=== PATIENT | male | born 1960 | race Asian ===

== ENCOUNTER → 2017-01-01 | Outpatient (CLI) | payer OTHER ==
[~2017-01-01] MED LIST: ALLOPURINOL100 MG PO; ATA25 PO; AUG500 PO; BACTRIM DS1 TAB PO; BG MC; COL100 PO; ECO81 PO; METFORMIN ER500 M1 PO; METOPROLOL SUCC50 M2 PO; SIMVASTATIN20 M1 PO; TRICOR48 M1 PO; VAN1PM IV; XALATAN2.5 ML OU; ZESTRIL20 MG PO
== END | disposition home or self-care (01) ==
LOC: LB 09:14
DX: I25.10 Atherosclerotic heart disease of native coronary artery without angina pectoris (principal)
CPT/HCPCS: 84153

== ENCOUNTER 2017-02-23 06:17 | Emergency (ER) | payer OTHER ==
[2017-02-23 07:27] VITALS: BP 176/105
== END 2017-02-23 07:27 | disposition home or self-care (01) ==
LOC: ED 06:17
DX: M79.604 Pain in right leg (principal); E11.9 Type 2 diabetes mellitus without complications; I10 Essential (primary) hypertension; M10.9 Gout, unspecified
CPT/HCPCS: Q0092

== ENCOUNTER → 2017-03-13 | Outpatient (CLI) | payer OTHER | END | disposition home or self-care (01) | LOC: LB 13:01 | DX: M10.9 Gout, unspecified (principal) ==

== ENCOUNTER → 2017-03-27 | Outpatient (CLI) | payer OTHER | END | disposition home or self-care (01) | LOC: RD 13:45 | DX: S82.90XA Unspecified fracture of unspecified lower leg, initial encounter for closed fracture (principal); X58.XXXA Exposure to other specified factors, initial encounter; Y92.9 Unspecified place or not applicable ==

== ENCOUNTER → 2017-07-13 | Outpatient (CLI) | payer OTHER | END | disposition home or self-care (01) | LOC: LB 07:37 | DX: R97.20 Elevated prostate specific antigen [PSA] (principal) | CPT/HCPCS: 84153 ==

== ENCOUNTER → 2017-10-01 | Outpatient (CLI) | payer OTHER ==
[2017-10-01 08:06] LABS: BASOPHIL % 0.8 % (0-2); PLATELET COUNT 229 x10^3mcL (130-400); RED CELL DISTRIBUTION WIDTH 12.9 % (11.5-14.5)
[2017-10-01 08:59] LABS: ALBUMIN 3.9 g/dL (3.4-5.0); ALKALINE PHOSPHATASE 77 U/L (46-116); ALT/SGPT 43 U/L (16-63); AST/SGOT 26 U/L (15-37); BILIRUBIN DIRECT 0.14 mg/dL (0.0-0.2); BILIRUBIN TOTAL 0.65 mg/dL (0.20-1.00); CALCIUM 8.9 mg/dL (8.5-10.1); CHLORIDE SERUM 104 mmol/L (98-107); CREATININE SERUM 1.1 mg/dL (0.7-1.3); GFR1 > 60 mL/min; GLUCOSE SERUM 141 mg/dL (74-106); HDL CHOLESTEROL 42 mg/dL (40-60); SODIUM SERUM 140 mmol/L (136-145); TOTAL PROTEIN, SERUM 7.5 g/dL (6.4-8.2)
[2017-10-01 09:02] LABS: CHOLESTEROL 206 mg/dL (<200); CHOLESTEROL/HDL RATIO 4.9; TRIGLYCERIDES 310 mg/dL (<150)
[2017-10-02 13:06] LABS: microalbumin:creatinine ratio 84.2 (0.0-30.0)
== END | disposition home or self-care (01) ==
LOC: LB 07:27
PROVIDERS: Internal Medicine
DX: E11.9 Type 2 diabetes mellitus without complications (principal); I10 Essential (primary) hypertension

== ENCOUNTER 2017-10-21 06:13 | Day surgery (SDC) | payer OTHER ==
[~2017-10-21] VITALS: Ht 175.3 cm; Wt 106.6 kg
[2017-10-21 06:26] VITALS: BP 171/97
[2017-10-21 09:53] VITALS: BP 148/89
== END 2017-10-21 09:45 | disposition home or self-care (01) ==
LOC: DS 06:13 → OR 07:30 → GI 07:30 → DS 09:45
PROVIDERS: Internal Medicine
PROC: 0DBP8ZZ Excision of Rectum, Via Natural or Artificial Opening Endoscopic (ICD-10-PCS; principal; 2017-10-21 07:30)
DX: Z12.11 Encounter for screening for malignant neoplasm of colon (principal); K62.1 Rectal polyp; E11.9 Type 2 diabetes mellitus without complications; H40.9 Unspecified glaucoma; I10 Essential (primary) hypertension; M10.9 Gout, unspecified; E78.00 Pure hypercholesterolemia, unspecified; Z86.010 Personal history of colon polyps; Z68.34 Body mass index [BMI] 34.0-34.9, adult
CPT/HCPCS: 45378; J0690; J1200; J1610; J2001; J2250; J2310; J3010; J3490

== ENCOUNTER → 2018-02-02 | Outpatient (CLI) | payer OTHER ==
[2018-02-02 08:39] LABS: ALBUMIN 3.8 g/dL (3.4-5.0); ALKALINE PHOSPHATASE 76 U/L (46-116); ALT/SGPT 44 U/L (16-63); AST/SGOT 23 U/L (15-37); BILIRUBIN TOTAL 0.9 mg/dL (0.20-1.00); CALCIUM 9.4 mg/dL (8.5-10.1); CARBON DIOXIDE 27.8 mmol/L (21-32); CHLORIDE SERUM 102 mmol/L (98-107); GFR1 > 60 mL/min; GLUCOSE SERUM 194 mg/dL (74-106); POTASSIUM SERUM 4.7 mmol/L (3.5-5.1); SODIUM SERUM 137 mmol/L (136-145); TOTAL PROTEIN, SERUM 7.8 g/dL (6.4-8.2)
== END | disposition home or self-care (01) ==
LOC: LB 07:23
PROVIDERS: Internal Medicine
DX: E11.9 Type 2 diabetes mellitus without complications (principal)
CPT/HCPCS: 84153

== ENCOUNTER → 2018-06-07 | Outpatient (CLI) | payer OTHER | END | disposition home or self-care (01) | LOC: LB 07:31 | DX: Z80.42 Family history of malignant neoplasm of prostate (principal) | CPT/HCPCS: 84153 ==

== ENCOUNTER → 2018-10-19 | Outpatient (CLI) | payer OTHER | END | disposition home or self-care (01) | LOC: LB 07:30 | DX: Z04.89 Encounter for examination and observation for other specified reasons (principal) | CPT/HCPCS: 84153 ==

== ENCOUNTER → 2019-03-28 | Outpatient (CLI) | payer OTHER | END | disposition home or self-care (01) | LOC: LB 11:00 | DX: R97.20 Elevated prostate specific antigen [PSA] (principal) | CPT/HCPCS: 84153 ==

== ENCOUNTER → 2019-09-26 | Outpatient (CLI) | payer OTHER | END | disposition home or self-care (01) | LOC: LB 09:47 | DX: R97.20 Elevated prostate specific antigen [PSA] (principal) | CPT/HCPCS: 84153 ==

== ENCOUNTER → 2019-10-21 | Outpatient (CLI) | payer OTHER ==
[2019-10-21 07:49] LABS: BASOPHIL % 0.9 % (0-2); PLATELET COUNT 223 x10^3mcL (130-400); RED CELL DISTRIBUTION WIDTH 12.8 % (11.5-14.5)
[2019-10-21 08:47] LABS: ALBUMIN 3.9 g/dL (3.4-5.0); ALKALINE PHOSPHATASE 70 U/L (46-116); ALT/SGPT 50 U/L (16-63); AST/SGOT 26 U/L (15-37); BILIRUBIN DIRECT 0.18 mg/dL (0.0-0.2); BILIRUBIN TOTAL 0.7 mg/dL (0.20-1.00); CALCIUM 9.1 mg/dL (8.5-10.1); CHLORIDE SERUM 100 mmol/L (98-107); CHOLESTEROL 144 mg/dL (<200); CHOLESTEROL/HDL RATIO 3.4; CREATININE SERUM 1.2 mg/dL (0.7-1.3); GFR1 > 60 mL/min; GLUCOSE SERUM 147 mg/dL (74-106); HDL CHOLESTEROL 42 mg/dL (40-60); POTASSIUM SERUM 4.5 mmol/L (3.5-5.1); SODIUM SERUM 138 mmol/L (136-145); TOTAL PROTEIN, SERUM 7.5 g/dL (6.4-8.2)
[2019-10-21 08:50] LABS: TRIGLYCERIDES 225 mg/dL (<150)
== END | disposition home or self-care (01) ==
LOC: LB 06:22
PROVIDERS: ATTEND Internal Medicine
DX: Z00.00 Encounter for general adult medical examination without abnormal findings (principal)
CPT/HCPCS: 84153

== ENCOUNTER → 2020-01-30 | Outpatient (CLI) | payer OTHER | END | disposition home or self-care (01) | LOC: LB 07:37 | DX: Z80.42 Family history of malignant neoplasm of prostate (principal) | CPT/HCPCS: 84153 ==

== ENCOUNTER → 2020-06-05 | Outpatient (CLI) | payer OTHER | END | disposition home or self-care (01) | LOC: LB 07:06 | PROVIDERS: ATTEND Internal Medicine | DX: Z80.42 Family history of malignant neoplasm of prostate (principal) | CPT/HCPCS: 84153 ==